=== PATIENT | female | born 1960 | race Hispanic/Latino ===

== ENCOUNTER 2017-02-17 09:44 | Outpatient (CLI) | payer MEDICARE ==
--- NOTE | 2017-02-17 11:35 | Ultrasound Report ---
RIGHT UPPER QUADRANT ULTRASOUND: HISTORY: Right upper quadrant abdominal pain. Technique: Transabdominal ultrasound imaging with Doppler interrogation. FINDINGS: There are multiple shadowing gallstones within the gallbladder with the largest measuring 1.7 cm. There is no evidence for gallbladder distention, wall thickening or surrounding fluid. The CBD measures 2 mm. Images of the liver parenchyma, pancreas, right kidney and aorta are within normal limits. No perihepatic ascites. IMPRESSION: Cholelithiasis. No evidence for acute cholecystitis.
== END 2017-02-17 09:45 | disposition home or self-care (01) ==
LOC: US 09:44
PROVIDERS: ATTEND Surgery
DX: K80.20 Calculus of gallbladder without cholecystitis without obstruction (principal)
CPT/HCPCS: 76705

== ENCOUNTER 2017-03-04 09:53 | Day surgery (SDC) | payer MEDICARE ==
--- NOTE | 2017-02-21 10:45 | Admit Criteria Form ---
Admission Criteria Documentation: AMBULATORY SURGERY EXCEPTION CRITERIA Ambulatory Surgery Exception Criteria ( Place 'X' for any and all applicable criteria): Surgery or procedure performed on ambulatory basis may require inpatient stay for[A] ANY ONE of the following(1)(2)(3)(4)(5)(6)(7)(8)(9): [X] I. A preoperative situation, condition, or finding that warrants inpatient stay as indicated by ANY ONE of the following: [] a) Inpatient care needed because of severity of a disease or condition rather than the surgery (eg, severe cardiac or respiratory disease, severe infection) (15) (16 ) (17) (18) [] b) Emergent procedure (eg, angioplasty for acute ischemia)(19) [] c) Complex surgical approach or situation as indicated by ANY ONE of the following(3): [] i) Open approach needed instead of usual endoscopic, transcatheter, or other less invasive procedure [] ii) Difficult approach because of previous operation [] iii) Airway monitoring required after open neck procedures(20)(21) [] iv) Large mass requiring unusually extensive dissection [] v) Additional complicating feature requiring inpatient care (eg, drain management)(22(23): [X] d) Major surgery in a pt with high anesthetic risk as indicated by ANY ONE of the following (2)(3)(5)(7)(8): [X] i) ASA risk class III or higher (severe systemic disease impairing function) [D] [] ii) Advanced age (eg, older than 85 years)(14)(24) [] iii) Symptomatic heart failure(25) [] iv) Symptomatic asthma or COPD(8)(21) [] v) Morbid obesity with hemodynamic or respiratory problems(20)( 21)(26)(27) [] vi) Obstructive sleep apnea(20)(21) [] vii) Former premature infants who are younger than 60 weeks [] viii) High risk for severe postoperative abnormalities (eg, severe postoperative hypocalcemia after parathyroidectomy for severe hyperparathyroidism)(27)( 28) [] ix) Unstable angina(25) [] e) Drug-related risk requiring inpatient stay as indicated by ANY ONE of the following(5)(10)(14)(32)(33) [] i) Procedure requires discontinuing drugs or other therapy (eg , antiarrhythmic medication, antiseizure medication), which necessitates inpatient observation or treatment.(18)(31) [] ii) Major surgery and high risk drug use as indicated by ANY ONE of the following: [] 1) Active abuse of cocaine or similar drug [] 2) Monoamine oxidase inhibitor use [] 3) Other drug identified as posing risk [] f) Inadequate outpatient care situation as indicated by ANY ONE of the following(5)(10)(14)(32)(33) [] i) Patient lives remote from medical facility and procedure has urgent complication potential, and temporary nearby residence cannot be arranged [] ii) Patient will have postprocedure incapacitation and inadequate assistance at home, or alternative level of care cannot be arranged. [] iii) Patient will have long general anesthesia or procedure side effect resolution time, and competent person to stay with patient on first postoperative night at home or alternative level of care cannot be arranged. []iv) Other inadequate outpatient situation that cannot be handled by other means [] II. A perioperative event, condition, or finding that warrants inpatient stay as indicated by ANY ONE of the following (1)(2)(3): [] a) Inadequate physiologic recovery: cardiovascular, respiratory, or hemodynamic status not normal or near preoperative baseline(18) [] b) Hemodynamic instability [] c) Patient not alert with near normal or baseline mental status [] d) Temperature not normal or as expected and not appropriate for outpatient treatment of condition [] e) Ambulatory or appropriate activity level status not yet achieved post procedure [E](34)(35)(36) [] f) Operative site not appropriate (eg, unexpected or excessive drainage or bleeding) [] g) Postoperative effects not resolved or adequately managed (eg, significant pain or vomiting not appropriate for outpatient or next level of care)(10)(12) [] h) Complicating features requiring inpatient care as indicated by ANY ONE of the following(37): [] i) Severe complications of procedure (eg, bowel injury, airway compromise, vascular injury,severe hemorrhage) [] ii) Extensive (eg, dissection far beyond usual scope of procedure ) or prolonged (eg, 120 minutes beyond usual) surgery needed requiring inpatient postoperative care [] iii) Conversion to an open or complex procedure that requires inpatient care (eg, open vs laparoscopic cholecystectomy, abdominal vs vaginal hysterectomy)(38) [] iv) Comorbid condition or test result identified during or post procedure that requires inpatient care (7) [] v) Malignant hyperthermia(30) [] vi) Other complicating feature requiring inpatient care(22)(23) Inpatient stay may be needed until ALL of the following are present (1)(2)(3)(4) (5)(6)(10)(14)(33)(40): []a) Physiologic recovery: cardiovascular, respiratory, and hemodynamic status normal or near preoperative baseline []b) Hemodynamic stability []c) Patient alert, with near normal or baseline mental status []d) Temperature appropriate: patient afebrile or temperature appropriate for outpt treatment of condition []e) Activity level appropriate: ambulatory or appropriate activity level post procedure []f) Operative site appropriate as indicated by ALL of the following: []i) Site dry or with expected drainage []ii) Any blood noted is as expected for procedure. []g) Postoperative effects resolved or managed as indicated by ALL of the following: []i) Pain management appropriate for outpatient (or next level of) care(10) []ii) Minimal nausea and vomiting: if present, successfully treated with oral medication(12) []iii) Headache, dizziness, or drowsiness (if present) are mild. []h) Voiding status acceptable as indicated by ANY ONE of the following: []i) Voiding spontaneously []ii) No voiding but instructions given for follow-up in 6 to 8 hours []iii) Urinary catheter in place, and instructions given for follow-up []i) Complicating features requiring inpatient care manageable at a lower level of care(37) []j) Comorbid conditions manageable at a lower level of care(37) The original [employer] content created by [employer] has been revised. The portions of the content which have been revised are identified through the use of italic text or in bold, and [employer] has neither reviewed nor approved the modified material. All other unmodified content is copyright [employer]. Please see references footnoted in the original [employer] edition 2016
[~2017-03-04 09:53] MED LIST: ceFAZolin 2 GM in NACL 0.9% 100 ML IV NR
[2017-03-04] MEDS ORDERED: NACL 0.9% 1000 ML 1,000 ML ONE (10:30)
[2017-03-04] MEDS ORDERED: PEPCID ONE (10:31)
[2017-03-04] MEDS ORDERED: DIPRIVAN 10 MG/ML IV ONE ×2 (10:33→11:46)
[2017-03-04] MEDS ORDERED: SUBLIMAZE ONE (10:33)
[2017-03-04] MEDS ORDERED: ZEMURON IV ONE (10:35)
[2017-03-04] MEDS ORDERED: NACL 0.9% 100 ML ONE (10:41)
[2017-03-04] MEDS ORDERED: MARCAINE 0.25% INFILTRATI ONE ×2 (10:41→11:58)
[2017-03-04] MEDS ORDERED: VERSED ONE (10:58)
[2017-03-04] MEDS ORDERED: PROVENTIL IH ONE ×2 (10:58→12:56)
[2017-03-04] MEDS ORDERED: PEPCID PO NR (11:10)
--- NOTE | 2017-03-04 11:14 | Anesthesia Consultation ---
Anesthesia Consult and Med Hx Date of service: 03/04/17 - Airway Anesthetic Teeth Evaluation: Dentures ROM Head & Neck: Adequate Mental/Hyoid Distance: Inadequate Mallampati Class: Class II Intubation Access Assessment: Probably Good - Pulmonary Exam CTA: Yes - Cardiac Exam Cardiac Exam: RRR - Pre-Operative Health Status ASA Pre-Surgery Classification: ASA3 Proposed Anesthetic Plan: General - Pulmonary Hx Smoking: Yes (CIGARETTES 1 PPD X 43 YRS, recently decreased from 3 PPD) Hx Asthma: Yes Hx Respiratory Symptoms: Yes SOB: Yes COPD: Yes (severe COPD per PFT's, home nebulizer 4x day) Home Oxygen Therapy: No Hx Sleep Apnea: No - Cardiovascular System Hx Hypertension: No - Central Nervous System Hx Psychiatric Problems: Yes (anxiety, depression, bipolar) - Gastrointestinal Hx Gastroesophageal Reflux Disease: Yes (recent onset with GB problems) - Endocrine Hx Renal Disease: No Hx Insulin Dependent Diabetes: No Hx Hypothyroidism: No - Hematic Hx Anemia: No Hx Sickle Cell Disease: No - Other Systems Hx Alcohol Use: No Hx Substance Use: No Hx Cancer: No Hx Obesity: No - Additional Comments Anesthesia Medical History Comments: 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
--- NOTE | 2017-03-04 11:14 | Anesthesia Day of Surgery ---
Anesthesia Day of Surgery - Day of Surgery Patient Examined: Yes Patient H&P Reviewed: Yes Patient is NPO: Yes Pulmonary Clearance: Yes
[2017-03-04] MEDS ORDERED: XYLOCAINE MPF 2% ONE (11:30)
[2017-03-04] MEDS ORDERED: DECADRON ONE (11:30)
[2017-03-04] MEDS ORDERED: BREVIBLOC IV ONE (11:33)
[2017-03-04] MEDS ORDERED: ROBINUL ONE ×2 (11:33)
[2017-03-04] MEDS ORDERED: ZOFRAN ONE (11:33)
[2017-03-04] MEDS ORDERED: DILAUDID ONE (11:35)
[2017-03-04] MEDS ORDERED: NEOSTIGMINE ONE (11:39)
[2017-03-04] MEDS ORDERED: NACL 0.9% IR ONE (11:58)
[2017-03-04] MEDS ORDERED: NACL 0.9% 1000 ML 1,000 ML IV SCH (12:00)
[2017-03-04] MEDS ORDERED: ANCEF/STERILE WATER 2 GM/20 ML 2 GM/20 ML SYRINGE IV SCH (12:00)
[2017-03-04] MEDS ORDERED: VERSED IV NR (12:00)
[2017-03-04] MEDS ORDERED: PROVENTIL IH NR (12:00)
[2017-03-04] MEDS ORDERED: PEPCID IV NR (12:00)
[2017-03-04] MEDS ORDERED: ZOFRAN IV PRN ×2 (12:00→13:33)
--- NOTE | 2017-03-04 12:20 | Post Operative Note ---
Pre-op diagnosis: gallstones with biliary colic Post-op diagnosis: same Findings: as above adhesions + Procedure: laparoscopic cholecystectomy Anesthesia: GETA Surgeon: IVETT AN [employer] Operator: DYLAN MILTON Estimated blood loss: minimal Pathology: list (gallbladder) Condition: stable Disposition: PACU
--- NOTE | 2017-03-04 12:24 | Discharge Summary ---
Short Stay Discharge Plan Weight Bearing Status: Full Weight Bearing Diet: low fat Wound: open to air Follow up with: JUAN AYERS MD [Primary Care Provider] - 7 Days Prescriptions: Ondansetron [Zofran TAB] 4 mg PO Q8HR PRN #20 tablet PRN Reason: Nausea oxyCODONE /ACETAMINOPHEN [Percocet 5/325] 1 tab PO Q4HR PRN #20 tab PRN Reason: Pain traMADol [Ultram 50 MG tab] 50 mg PO Q4HR PRN #20 tablet PRN Reason: Pain
--- NOTE | 2017-03-04 12:51 | Post Anesthesia Evaluation ---
- Post Anesthesia Evaluation Patient Participated: Yes Airway Patent: Yes Stable Respiratory Function: Yes Nausea/Vomiting: No Temp > 96.8F: Yes Pain Manageable: Yes Adequeate Hydration: Yes Anesthesia Complications: No Block Receding Appropriately: Not Applicable Patient on Ventilator: No
[2017-03-04] MEDS: DILAUDID IV PRN ×2 (13:00→13:10)
[2017-03-04] MEDS ORDERED: PERCOCET 5/325 PO PRN (13:49)
--- NOTE | 2017-03-04 16:26 | Progress Note ---
Subjective Date of service: 03/04/17 Interval history: Spoke with Dr Carver who had ordered pulmonary consult in PACU due to post op wheezing. Patient was treated in PACU and is now much improved. She has SaO2 in mid 90's with good incentive spirometry. Lungs have mild delay in expiratory phase with no wheezing. Patients breathing in non labored and she feel s comfortable. It is OK to discharge patient with outpatient follow up with respiratory. Objective - Constitutional Vitals: Vital Signs - 12hr 03/04/17 03/04/17 03/04/17 10:15 12:18 12:20 Temperature 97.6 F 97.4 F L Pulse Rate 94 H 88 88 Respiratory 18 16 18 Rate Blood Pressure 138/92 139/89 132/87 O2 Sat by Pulse 97 100 100 Oximetry 03/04/17 03/04/17 03/04/17 12:25 12:30 12:35 Temperature Pulse Rate 86 86 91 H Respiratory 18 18 16 Rate Blood Pressure 132/84 151/82 160/89 O2 Sat by Pulse 100 100 100 Oximetry 03/04/17 03/04/17 03/04/17 12:45 13:00 13:10 Temperature Pulse Rate 94 H 91 H Respiratory 16 20 20 Rate Blood Pressure 159/73 165/85 O2 Sat by Pulse 100 97 Oximetry 03/04/17 03/04/17 03/04/17 13:15 13:25 13:30 Temperature 97.1 F L Pulse Rate 89 83 Respiratory 14 18 14 Rate Blood Pressure 150/67 139/72 O2 Sat by Pulse 93 94 Oximetry 03/04/17 03/04/17 03/04/17 13:45 14:00 14:09 Temperature Pulse Rate 80 81 Respiratory 14 12 14 Rate Blood Pressure 144/76 133/78 O2 Sat by Pulse 94 95 Oximetry 03/04/17 03/04/17 14:15 14:30 Temperature 97.4 F L Pulse Rate 80 73 Respiratory 14 14 Rate Blood Pressure 128/55 110/60 O2 Sat by Pulse 93 89 Oximetry - Labs Labs: Abnormal lab results 03/04/17 Range/Units 12:00 POC Glucose 113 H (70-105)
[2017-03-04 17:11] VITALS: BP 118/68
--- NOTE | 2017-03-04 19:09 | Operative Report ---
PREOPERATIVE DIAGNOSIS: Biliary colic with gallstones. POSTOPERATIVE DIAGNOSIS: Biliary colic with gallstones. OPERATIVE PROCEDURE: Laparoscopic cholecystectomy. ANESTHESIA: General endotracheal. SURGEON: Darin Carver MD MILLED RUBBER TENDER: Dr. Harding. INDICATIONS: A 56-year-old female patient presenting with right upper quadrant pain, nausea. Gallbladder ultrasound showed multiple gallstones and a normal size bile duct. She has undergone and oophorectomy earlier. She smokes more than 2 packs a day, has history of COPD, seen by Pulmonary Medicine specialists and cleared for surgery. She also has hypertension and bipolar disorder. FINDINGS: Adhesions to the medial part of the gallbladder and to the undersurface of the liver away from the gallbladder by omentum. Gallbladder contained multiple small and medium cholesterol stones. Cystic duct is of normal caliber. Visualized part of the liver showed rounded edges suggestive of fatty liver, but no evidence of cirrhosis or portal hypertension. Adhesions in the lower abdomen were evident. No ascites was evident. DESCRIPTION OF PROCEDURE: After satisfactory induction of general endotracheal anesthesia, abdomen was prepped and draped. A supraumbilical transverse incision was made and a Veress needle was inserted in the peritoneal cavity. After adequate carbon dioxide insufflation up to 15 mmHg, a 5 mm trocar was inserted, through this a 5 mm 30-degree angle scope was placed and under direct visualization, an 11 mm epigastric and other two lateral ports were placed. Adhesions to the gallbladder and to the undersurface of the liver up to the falciform ligament were taken down at the omental edges using cautery. This freed up the rest of the gallbladder. Another clamp was placed in the infundibulum. Cystic duct was well delineated. Cystic bile duct junction was identified and clips were applied to cystic duct as far as away from the cystic bile duct junction as possible and the cystic duct was divided. Cystic artery likewise was identified, from the adjacent structures and clips were applied and the cystic artery was divided. Gallbladder was removed from the liver bed by using hook attached to cautery. No bleeding was encountered from the liver bed. It was retrieved into an EndoCatch bag and was pulled out of the epigastric trocar. Trocar was replaced and liver bed was inspected and found to be hemostatically dry. All the clips were intact. Desufflation was done and all the trocars were removed under direct visualization. Skin margins at all the skin incisions were closed with 4-0 Vicryl sutures. There was minimal blood loss and she tolerated the procedure well. JOB# [id number] JESSICA/EDMUNDO
== END 2017-03-04 09:54 | disposition home or self-care (01) ==
LOC: OR 09:53
PROVIDERS: ATTEND Surgery
DX: K80.10 Calculus of gallbladder with chronic cholecystitis without obstruction (principal); F17.210 Nicotine dependence, cigarettes, uncomplicated; J44.9 Chronic obstructive pulmonary disease, unspecified; J45.909 Unspecified asthma, uncomplicated; F41.9 Anxiety disorder, unspecified; F31.9 Bipolar disorder, unspecified; K21.9 Gastro-esophageal reflux disease without esophagitis
CPT/HCPCS: 47562; 82962; 88304; J0690; J1100; J1170; J2250; J2405; J2704; J2710; J3010; J7030

== ENCOUNTER 2019-02-04 10:28 | Emergency (ER) | payer MEDICARE ==
[2019-02-04 11:05] LABS: Hematocrit 42.1 % (30.3-42.9); Mean Corpuscular HGB Conc 33 % (30-34); Mean Corpuscular Volume 89 fl (79-97); Platelet Count 243 K/mm3 (140-440); Red Blood Count 4.75 M/mm3 (3.65-5.03); Red Cell Distribution Width 14.1 % (13.2-15.2)
[2019-02-04] MEDS ORDERED: SOLU-Medrol IV ONE (11:17)
[2019-02-04] MEDS ORDERED: PROVENTIL IH ONE (11:17)
[2019-02-04] MEDS ORDERED: MAGNESIUM SULFATE 2GM/50ML 2 GM/50 ML BAG IV ONE (11:18)
[2019-02-04 11:45] LABS: Band Neutrophils # (Manual) 0.2 K/mm3; Basophils % (Manual) 0 % (0.0-1.8); Platelet Estimate Consistent w Auto; RBC Morphology Normal; Total Cells Counted 100
--- NOTE | 2019-02-04 11:55 | Emergency Department Report ---
ED Shortness of Breath HPI - General Chief Complaint: Dyspnea/Respdistress Stated Complaint: SELAM/STOMACH PAIN/COPD Time Seen by Provider: 02/04/19 11:10 Source: patient Mode of arrival: Ambulatory Limitations: No Limitations - History of Present Illness Initial Comments: 58-year-old female presents to the ED with shortness of breath since last night. Patient has history of COPD, not on home O2. Patient states she administered multiple of breathing treatments at home prior to coming to the ER. Patient reported this congestion, denies fever or chest pain. Patient also reports abdominal pain over the last few days with eating or drinking, and abdominal distention. Patient denies nausea, vomiting, diarrhea. Patient reports tobacco use. MD Complaint: shortness of breath -: Last night Severity: moderate Consistency: constant Improves With: nothing Worsens With: nothing Known History Of: COPD Associated Symptoms: cough Treatments Prior to Arrival: bronchodilator - Related Data Home Oxygen Therapy: No Home Medications Medication Instructions Recorded Confirmed Last Taken ALBUTEROL NEB's [Proventil 0.083% 2.5 mg IH QID PRN 02/26/17 03/04/17 03/04/17 07:30 NEBS] Cetirizine HCl [ZyrTEC] 10 mg PO QDAY 02/26/17 03/04/17 03/03/17 09:00 FLUoxetine [PROzac] 20 mg PO QDAY 02/26/17 03/04/17 03/04/17 07:30 Fluticasone/Vilanterol [Breo 1 each IH QDAY 02/26/17 03/04/17 03/03/17 09:00 Ellipta 100-25 Mcg INH] Trazodone HCl 100 mg PO QHS 02/26/17 03/04/17 03/03/17 20:00 Venlafaxine HCl [Effexor Xr] 150 mg PO QDAY 02/26/17 03/04/17 03/04/17 07:30 Previous Rx's Medication Instructions Recorded Last Taken Type Omeprazole [PriLOSEC] 20 mg PO QDAY #7 capsule. 05/03/15 03/03/17 09:00 Rx Ondansetron [Zofran TAB] 4 mg PO Q8HR PRN #20 tablet 03/04/17 Unknown Rx oxyCODONE /ACETAMINOPHEN [Percocet 1 tab PO Q4HR PRN #20 tab 03/04/17 Unknown Rx 5/325] traMADol [Ultram 50 MG tab] 50 mg PO Q4HR PRN #20 tablet 03/04/17 Unknown Rx ALBUTEROL Inhaler(NF) [VENTOLIN 1 puff IH Q4HR PRN #1 inha 02/04/19 Unknown Rx Inhaler(NF)] Dicyclomine [Bentyl] 20 mg PO QID PRN #20 tablet 02/04/19 Unknown Rx Allergies Allergy/AdvReac Type Severity Reaction Status Date / Time hydrocodone AdvReac Itching Verified 02/26/17 15:25 ED Review of Systems ROS: Stated complaint: SELAM/STOMACH PAIN/COPD Other details as noted in HPI Comment: All other systems reviewed and negative Constitutional: denies: chills, fever Respiratory: cough, shortness of breath, wheezing Cardiovascular: denies: chest pain Gastrointestinal: abdominal pain. denies: nausea, vomiting, diarrhea ED Past Medical Hx - Past Medical History Previous Medical History?: Yes Hx Hypertension: No Hx Renal Disease: No Hx Sickle Cell Disease: No Hx Psychiatric Treatment: Yes (Bipolar) Hx Asthma: Yes Hx COPD: Yes (severe COPD per PFT's, home nebulizer 4x day) Additional medical history: Bronchitis - Surgical History Past Surgical History?: Yes Additional Surgical History: C section x2. R ovary removed - Social History Smoking Status: Former Smoker Substance Use Type: None - Medications Home Medications: Home Medications Medication Instructions Recorded Confirmed Last Taken Type Omeprazole [PriLOSEC] 20 mg PO QDAY #7 capsule. 05/03/15 03/04/17 03/03/17 09:00 Rx ALBUTEROL NEB's [Proventil 0.083% 2.5 mg IH QID PRN 02/26/17 03/04/17 03/04/17 07:30 History NEBS] Cetirizine HCl [ZyrTEC] 10 mg PO QDAY 02/26/17 03/04/17 03/03/17 09:00 History FLUoxetine [PROzac] 20 mg PO QDAY 02/26/17 03/04/17 03/04/17 07:30 History Fluticasone/Vilanterol [Breo 1 each IH QDAY 02/26/17 03/04/17 03/03/17 09:00 History Ellipta 100-25 Mcg INH] Trazodone HCl 100 mg PO QHS 02/26/17 03/04/17 03/03/17 20:00 History Venlafaxine HCl [Effexor Xr] 150 mg PO QDAY 02/26/17 03/04/17 03/04/17 07:30 History Ondansetron [Zofran TAB] 4 mg PO Q8HR PRN #20 tablet 03/04/17 Unknown Rx oxyCODONE /ACETAMINOPHEN [Percocet 1 tab PO Q4HR PRN #20 tab 03/04/17 Unknown Rx 5/325] traMADol [Ultram 50 MG tab] 50 mg PO Q4HR PRN #20 tablet 03/04/17 Unknown Rx ALBUTEROL Inhaler(NF) [VENTOLIN 1 puff IH Q4HR PRN #1 inha 02/04/19 Unknown Rx Inhaler(NF)] Dicyclomine [Bentyl] 20 mg PO QID PRN #20 tablet 02/04/19 Unknown Rx ED Physical Exam - General Limitations: No Limitations General appearance: alert - Head Head exam: Present: atraumatic, normocephalic - Eye Eye exam: Present: normal appearance - ENT ENT exam: Present: mucous membranes moist - Neck Neck exam: Present: normal inspection - Respiratory Respiratory exam: Present: respiratory distress, wheezes, other (slightly tachypneic) - Cardiovascular Cardiovascular Exam: Present: regular rate, normal rhythm - GI/Abdominal GI/Abdominal exam: Present: soft, distended (mildly), tenderness (epigastric) - Extremities Exam Extremities exam: Present: normal inspection - Neurological Exam Neurological exam: Present: alert, oriented X3 - Psychiatric Psychiatric exam: Present: normal affect, normal mood - Skin Skin exam: Present: warm, dry, intact, normal color ED Course Vital Signs 02/04/19 02/04/19 02/04/19 10:34 11:33 12:10 Temperature 98.1 F Pulse Rate 87 90 Pulse Rate [ 73 Bilateral Middle Lobe] Respiratory 22 19 Rate Respiratory 13 Rate [Bilateral Middle Lobe] Blood Pressure 171/103 Blood Pressure 167/112 [Left] O2 Sat by Pulse 96 100 Oximetry 02/04/19 02/04/19 13:42 15:03 Temperature Pulse Rate 66 63 Pulse Rate [ Bilateral Middle Lobe] Respiratory 18 17 Rate Respiratory Rate [Bilateral Middle Lobe] Blood Pressure Blood Pressure 150/65 135/60 [Left] O2 Sat by Pulse 99 100 Oximetry - Reevaluation(s) Reevaluation #1: 02/04/19 12:41 WBCs elevated. Pt reports she is currently on day 5 of 12 of steroid taper that was prescribed by her physician. Possible cause of elevated WBCs. ED Medical Decision Making - Lab Data Result diagrams: 02/04/19 10:52 02/04/19 10:52 - Radiology Data Radiology results: report reviewed, image reviewed - Medical Decision Making 58 yo F w/ COPD exacerbation. Symptoms greatly improved w/ mag sulfate, solumedrol, and neb treatments. Pt also reported abdominal pain. CT abd/pelvis negative for any acute abnormalities. Elevated Wbcs possibly due to steroid use. Advised continuation of steroid taper, GI follow-up. Return precautions given. - Differential Diagnosis COPD, pneumonia, obstruction Critical care attestation.: If time is entered above; I have spent that time in minutes in the direct care of this critically ill patient, excluding procedure time. ED Disposition Clinical Impression: COPD exacerbation, Abdominal pain Disposition: - TO HOME OR SELFCARE Is pt being admited?: No Condition: Stable Instructions: Chronic Obstructive Pulmonary Disease (ED), Abdominal Pain (ED) Prescriptions: Dicyclomine [Bentyl] 20 mg PO QID PRN #20 tablet PRN Reason: abdominal pain ALBUTEROL Inhaler(NF) [VENTOLIN Inhaler(NF)] 1 puff IH Q4HR PRN #1 inha PRN Reason: Wheezing Referrals: PRIMARY CARE, [Primary Care Provider] - 3-5 Days Time of Disposition: 14:48
[2019-02-04] MEDS: ATROVENT IH ONE ×2 (12:07→12:10)
[2019-02-04 12:11] LABS: BUN/Creatinine Ratio 26; Blood Urea Nitrogen 18 mg/dL (7-17); Calcium 8.9 mg/dL (8.4-10.2); Hemolysis Index 13
--- NOTE | 2019-02-04 12:26 | XRay Report ---
ABDOMINAL SERIES: History: Abdominal pain, cough. Erect chest film shows mildly hyperinflated lungs. No evidence for pneumonia, pleural effusion or pneumothorax. Heart size is within normal limits. There is no evidence of free air beneath the diaphragms. The gas pattern within the abdomen is unremarkable. There is no evidence of bowel dilatation, significant air-fluid levels, or masses. Organ shadows are unremarkable. Cholecystectomy changes. IMPRESSION: Unremarkable abdomen. Mildly hyperinflated lungs suggesting mild emphysema.
[2019-02-04 12:33] LABS: Alanine Aminotransferase 22 units/L (7-56); Albumin 3.5 g/dL (3.9-5)
[2019-02-04 12:34] LABS: Bilirubin,Direct < 0.2 mg/dL (0-0.2)
--- NOTE | 2019-02-04 14:40 | Cat Scan Report ---
CT ABDOMEN PELVIS WITH CONTRAST: HISTORY: abdominal pain. COMPARISON: none. TECHNIQUE: Helical CT in 1.25mm intervals following IV contrast. Sagittal and coronal reconstructions. FINDINGS: Lung bases: Normal. Liver: Normal. Biliary system: Cholecystectomy. Pancreas: Normal. Spleen: Normal. Kidneys/ureters/bladder: Normal. Adrenal glands: A 1.3 cm low-density left adrenal nodule is identified which probably represents an adenoma. Normal right adrenal gland. Aorta: Mild distal calcifications. No aneurysm or stenosis. Intestines: Within normal limits given no oral contrast was administered. Appendix: Normal. Pelvic viscera: Normal. Ascites: None. Adenopathy: None. Musculoskeletal: Intact. Mild lumbar spondylosis. Chronic L5 pars defects. IMPRESSION: No acute process is identified in the abdomen or pelvis.
[2019-02-04 15:06] VITALS: BP 135/60
== END 2019-02-04 15:06 | disposition home or self-care (01) ==
LOC: ED 10:28
DX: J44.1 Chronic obstructive pulmonary disease with (acute) exacerbation (principal); R10.9 Unspecified abdominal pain
CPT/HCPCS: 36415; 74022; 74177; 80048; 80076; 83690; 84484; 85007; 85025; 93005; 93010; 94640; 96365; 96366; 96375; 99285; J2930; J3475; Q9967